=== PATIENT | female | born 1960 | race Caucasian/White ===

== ENCOUNTER 2023-10-12 10:03 | Outpatient (CLI) | payer BC, SELFPAY ==
--- NOTE | ~2023-10-12 | XR_ITS ---
EXAM: XR knee RT 3V, XR knee LT 3V DATE: 10/12/2023 10:29 (accession [id number]), 10/12/2023 10:30 (accession [id number]) HISTORY: M25.569 - Pain in unspecified knee . COMPARISON: None available. FINDINGS: Decreased mineralization. No fracture or dislocation. No lytic or blastic lesion. Moderate bilateral medial joint space narrowing. Moderate bilateral tricompartmental osteophytosis. Minimal b ilateral quadriceps enthesopathy. Bilateral chondrocalcinosis. Small bilateral knee joint effusions. No erosion or periosteal change. Soft tissues within normal limits. IMPRESSION: No acute osseous finding in the bilateral knees. Moderate bilateral tricompartmental knee arthritis with chondrocalcinosis. Reviewed, dictated and finalized at location K. IMPRESSION: No acute osseous finding in the bilateral knees. Moderate bilateral tricompartmental knee arthritis with chondrocalcinosis.
== END 2023-10-12 10:04 ==
PROVIDERS: PCP Physician Assistant; Visit Provider Physician Assistant
DX: M17.0 Bilateral primary osteoarthritis of knee (principal)
CPT/HCPCS: 73562

== ENCOUNTER 2024-03-09 09:54 | Outpatient (CLI) | payer BC, SELFPAY ==
--- NOTE | ~2024-03-09 | US_ITS ---
EXAMINATION: US arterial ankle brachial ind DATE: 03/09/2024 10:45 INDICATION: Peripheral vascular disease, unspecified. TECHNIQUE: Segmental pressures and plethysmographic and Doppler waveforms of the brachial and lower e xtremity arteries were obtained. COMPARISON: None. FINDINGS: Right and left brachial artery pressures of 160 mm Hg and 158 mm Hg, respectively, are concordant (no rmal difference <= 30 mmHg). The right ankle-brachial index (ZULEIKA) is 1.08 (normal >= 0.9-1.0). The right great toe-brachial index (TBI) is 0.53 (normal >= 0.65). Arterial Doppler waveforms are biphasic at the ankle. The left ZULEIKA is 0.93. The left TBI is 0.54. Arterial Doppler waveforms are monophasic at the ankle. IMPRESSION: 1. Mildly decreased TBIs and left ZULEIKA and normal right ZULEIKA, consistent with arterial occlusive diseas e. Note that ZULEIKA may be overestimated if arteries are calcified. Reviewed, dictated and finalized at location A. IMPRESSION: 1. Mildly decreased TBIs and left ZULEIKA and normal right ZULEIKA, consistent with art erial occlusive disease. Note that ZULEIKA may be overestimated if arteries are garcía cified.
== END 2024-03-09 09:55 | disposition home or self-care (01) ==
LOC: ANHIMG 09:59
PROVIDERS: PCP Family Medicine; Visit Provider Physician Assistant
DX: I73.9 Peripheral vascular disease, unspecified (principal)
CPT/HCPCS: 93922